=== PATIENT | male | born 1975 | race Two or more races ===

== ENCOUNTER 2018-03-31 11:53 | Emergency (ER) | payer MEDICAID, OTHER ==
[~2018-03-31] VITALS: Ht 175.3 cm; Wt 76.2 kg
--- NOTE | 2018-03-31 12:12 | NUR ---
PT REC'D TO ER C/O LEFT SIDE NECK AND DOWN THE HAND NUMBNESS IN FINGERS . SINCE 1 DAY . USED A AUTO MASSAGER. MUSCLE PAIN 10/22 SPEAKS [employer]
--- NOTE | 2018-03-31 12:25 | NUR ---
PT FITTED FOR LEFT ARM SLING
--- NOTE | 2018-03-31 13:12 | NUR ---
PT Patient discharged to home in stable condition. Written and verbal after care instructions given. Patient verbalizes understanding of instruction. EKG CLEAR
[2018-03-31 13:25] VITALS: BP 116/74
== END 2018-03-31 13:37 | disposition home or self-care (01) ==
LOC: ER 11:57
DX: M54.12 Radiculopathy, cervical region (principal); M79.602 Pain in left arm; R00.1 Bradycardia, unspecified
CPT/HCPCS: 93005; 99283; A4606